=== PATIENT | female | born 1945 | race Caucasian/White ===

== ENCOUNTER → 2016-06-01 | Outpatient (CLI) | payer MEDICARE, BC ==
[~2016-06-01] MED LIST: ASCO500C7 PO; ASPI81TA3 PO; CHOL10009 PO; COU75 PO; FOLI1POW MC; LACT10SO5 PO; LEVO125T PO; OXYC5CAP17 PO; VENL150C PO; VITA400C15 PO; [UNRECOGNIZED DRUG - CODE] IJ
--- NOTE | 2016-06-01 15:46 | RADRPT ---
PROCEDURE: XR Left Hip and pelvis. CLINICAL INDICATION: Left hip pain. Pelvic pain. Postop. TECHNIQUE: Two views. Frontal pelvis and lateral left hip. COMPARISON: 11/11/2015. FINDINGS: There is no fracture or dislocation. The soft tissues are normal. There is a left hip total arthroplasty which appears satisfactory. There are mild degenerative changes of the right hip with osteophytes noted. There is no lytic or blastic lesion. The upper pelvis is not included on the image. IMPRESSION: 1. Satisfactory postoperative appearance of the left hip. 2. Mild degenerative changes of the right hip. RPTAT: QQ .Calixto Horne MD, MD Date Time Electronically viewed and signed by .Calixto Horne MD, MD on 06/01/2016 15:45 .R/
--- NOTE | 2016-06-01 17:30 | HKNOTE ---
DATE OF SERVICE: 06/01/2016 SUBJECTIVE: A 71-year-old female who presents today for 6-month postop visit status post left total hip arthroplasty via anterior route. In regards to the hip, patient has no pain complaints. The patient is very pleased status post total hip replacement. Continues with antibiotic prophylaxis status post joint arthroplasty. The patient does have pain complaints, but related to the bilateral knees. The patient has had right total knee arthroplasty on 2010 and a left knee total arthroplasty on 05/29/2012. In regards to functionality the bilateral knees, patient has no complaints and she has returned to full function. The patient states that she has had gradual onset of pain to the knee with crepitus style sensation. Pain does not limit the patient's activity, but expresses concern as pain continues to progress. Denies any falls. OBJECTIVE: VITAL SIGNS: Blood pressure is 142/72, temperature is 98.7 degrees, pulse is 102, respiratory rate is 12, height is 5 feet 6 inches. GENERAL: Gait is normal and nonantalgic. HIP: Well healed surgical scarring to the anterior left hip. The patient displays full range of motion on flexion and extension to the left hip. No pain with range of motion. 5/5 strength on resistance to flexion and extension of the left hip. LEFT KNEE: The patient displays full range of motion to the left knee on flexion and extension. Noted crepitus is secondary to scar tissue. Normal sensory examination to light touch. 5/5 strength on resistance. RIGHT KNEE: Full range of motion to the right knee with mild crepitus due to scarring on palpation while performing range of motion. 5/5 strength. Normal sensory examination to light touch. Knee remains stable with anterior drawer and posterior drawer bilaterally. IMAGING: X-ray to the left hip performed on 06/01/2016 showing prosthesis well attached and integrated to the bone. No signs of any lucency status post surgery. ASSESSMENT AND PLAN: 1. In regards to the left hip, patient continues to do well with no complaints. She is discharged from active care status post surgery. 2. Antibiotic prophylaxis instructions repeated today and discussed with patient in detail. She remains in possession of antibiotic card. 3. In regards to bilateral knees, patient was advised to continue close monitoring and if pain continues to progress, she was advised to return to office for repeat evaluation. Consideration may be arthroscopic surgery to try and shave some of the scarring. 4. Continue anti-inflammatories as needed for any discomfort. 5. Followup as needed. The patient was seen with Dr. Sim in office today. Dr. Sim is aware and agrees with plan. Dictated By: MIKEY ARIZMENDI for RAUL SIM MD, KP/PITER Conf#: [id number] DID#: [id number] [facility]
== END | disposition home or self-care (01) ==
LOC: HKI 13:44
DX: Z47.1 Aftercare following joint replacement surgery (principal); Z96.642 Presence of left artificial hip joint
CPT/HCPCS: 73502; G0463

== ENCOUNTER → 2016-09-01 | Outpatient (CLI) | payer MEDICARE, BC ==
--- NOTE | 2016-09-01 18:34 | RADRPT ---
PROCEDURE: Right knee radiographs. CLINICAL INDICATION: Right knee pain. Postop. TECHNIQUE: Three views. Weight bearing. Frontal, lateral, and patellar view. COMPARISON: 04/17/2012. FINDINGS: There is no fracture or dislocation. The soft tissues are normal. There is a total right knee arthroplasty which appears satisfactory. There is no lytic or blastic lesion. There is no joint effusion. IMPRESSION: 1. Satisfactory postoperative appearance of the right knee. RPTAT: QQ .Calixto Horne MD, Date Time Electronically viewed and signed by .Calixto Horne MD, on 09/01/2016 18:34 .R/
--- NOTE | 2016-09-07 05:32 | HKNOTE ---
DATE OF SERVICE: 09/01/2016 MAIN COMPLAINT: Postoperative visit following total knee replacement. HISTORY OF MAIN COMPLAINT: The patient is a 71-year-old female who underwent a right total knee rep lacement on 03/15/2011. She states that the knee was perfect and she was extremely delighted with t he results until she fell on the leg about 2 years ago. She landed on the patella. She has had juliette n in the knee ever since then. The pain occurs especially on squatting and on going up stairs. Juliette n is intermittent. She gets some pain every day. After the injury to the knee, the entire knee bec drea swollen and "black and blue for about 2 weeks." She was able to walk without a cane. She ____ stairs. The knee has "never been the same since" and seems to be getting worse. The patient is extremely active. There are 2 things that she likes to do that she is not able to do right now. Her has a motorcycle, and it is almost impossible for her to get on the pillion . Her also has a smaller aircraft. It is very difficult for her to get into the cockpit. The knee occasionally swells. There is no instability. Occasionally the knee feels as if it might lock. PHYSICAL EXAMINATION: GENERAL: The patient is a fit-looking 71-year-old female. She walks without a walking aid. VITAL SIGNS: Height 5 feet 6 inches, weight 190 pounds, blood pressure 140/90, temperature 98.5. RIGHT KNEE: Scar of previous knee replacement. Extension lacks 15 degrees, flexion is to 105 degre es. There is some laxity of the medial collateral ligament. Imaging of the right knee obtained today shows all components to be satisfactory. All components appear to be well attached to the bone and satisfactory. There is no sign of looseni ng. Alignment of the components appears to be good. DISCUSSION: The patient's prosthesis may be loose, or she may have stretched out her medial collate ral ligaments. MANAGEMENT: The patient is being referred for an MRI scan of the right knee and will be seen again thereafter for reevaluation. She was advised that she may have to just simply live with it at this point depending on what our findings are. Dictated By: RAUL MORRISON/PITER Conf#: [id number] [facility]#: [id number]
== END | disposition home or self-care (01) ==
LOC: HKI 14:26
DX: Z47.89 Encounter for other orthopedic aftercare (principal); Z96.651 Presence of right artificial knee joint
CPT/HCPCS: 73562; G0463

== ENCOUNTER → 2016-12-13 | Outpatient (CLI) | payer MEDICARE, BC ==
--- NOTE | 2016-12-13 16:00 | PN ---
Date/Time of Note Date/Time of Note DATE: 12/13/16 TIME: 15:53 Outpatient Progress Note Chief Complaint Left knee and also feels like the knee is coming out of the socket for the last 2 months the knee is unsteady the pain is about 7 out of 10 aggravated by standing weightbearing moving positions also noted diminished motion. Pain is relieved by Percocet. Patient states she has fibromyalgia and is under treatment for this. 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 loss, no Fatigue, normal appetite, no diaphoresis. Eyes: No pain, no discharge, no redness, no visual change, no foreign body. ENT: No pain, no bleeding, no congestion, no sore throat, no dysphagia, no discharge or rhinitis. Lymph: No adenopathy, no tender nodes, no lymphedema. Resp: No SOB, no cough, no sputum, no wheezing, no chest pain. CV: No chest pain, no palpitaions, no SCHRADER, no PND, no edema. GI: Normal appetite, no pain, no nausea, no vomiting, no diarrhea, no blood, no constipation. : No frequency, no urgency, no dysuria, no hematuria, no flank pain, no discharge, no bleeding. Musc: No bone/joint pain, no back pain, no neck pain, no knee pain, no restricted ROM. Skin: No rash, no skin lesions, no erythema, no laceration, no bruising, no pruritus. Neuro: No MARTINEZ, no dizziness, no syncope, no seizure, no focal-weakness. Endo: No polyuria, no polydypsia, no dry-skin, no temp-intolerance. Psych: No hallucinations, no depression, no anxiety, no suicidal ideation. Ext: No edema, no pain, no ulcer, no weakness. Physical Exam Exam age 71 height 5 feet 6 weight 190 pounds. Examination of the left knee reveals tenderness over The pes anserine this over the medial tibial condyle Good motion of the knee. X-rays of the knee revealed the presence of a well executed total knee arthroplasty without any evidence of any loosening. Allergies Coded Allergies: scopolamine (Verified Allergy, Severe, TACHYCARDIA, 05/09/12) hydrocodone (Verified Allergy, Intermediate, RASH, 05/09/12) meperidine (Verified Allergy, Intermediate, RASH, 05/09/12) oxycodone (Verified Allergy, Intermediate, RASH, 09/30/15) 09/30/15: PT TAKES PERCOCET AT HOME caffeine (Verified Allergy, Unknown, 09/30/15) hydromorphone HCl (Verified Allergy, Unknown, 09/30/15) tramadol (Verified Allergy, Unknown, HULLUCINATIONS, 09/30/15) Uncoded Allergies: TAPE (Adverse Reaction, Intermediate, 09/30/15) RASH AND BLISTERS WITH PLASTIC TAPE Assessment/Plan Diagnosis pes anserine tendinitis.She is to return again in 2 weeks time This area cannot be injected because she is on CoumadinTreatment she is to have phonophoresis Depo-Medrol at a physical therapy facility To return again in 2 weeks time Medications Home Meds Reported Medications Lactulose* (Lactulose*) 10 Gm/15 Ml Solution, 10 GM PO Q6 Y for CONSTIPATION, ML 09/30/15 Oxycodone Hcl* (IR) (Oxycodone Hcl*) 5 Mg Capsule, 5 MG PO Q4H Y for PAIN, CAP 09/30/15 Warfarin Sodium (Coumadin) 7.5 Mg Tablet, 4 MG PO DAILY, TAB 09/30/15 Cholecalciferol (Vitamin D3) 1,000 Unit Capsule, 1000 UNIT PO DAILY 03/15/11 Cyanocobalamin* (Vitamin B12*) 1,000 Mcg/Ml Soln, 1000 MCG IJ QM 03/15/11 Ascorbic Acid* (Vitamin C*) 500 Mg Capsule.sa, 500 MG PO DAILY 03/15/11 Vitamin E* (Vitamin E*) 400 Unit Capsule, 400 UNIT PO DAILY 03/15/11 Aspirin* (Aspirin* Chew) 81 Mg Tab.chew, 81 MG PO DAILY 03/15/11 Levothyroxine Sodium* (Synthroid*) 125 Mcg Tablet, 125 MCG PO DAILY 03/15/11 Folic Acid (Folic Acid) 1 Gm Powder, 1 GM MC DAILY TAKES 3 TABS=3 MG 03/15/11 Venlafaxine Hcl* (Effexor XR*) 150 Mg Cap.sr.24h, 75 MG PO DAILY 03/15/11 ENA GAYTAN Dec 13, 2016 16:00
--- NOTE | 2016-12-13 18:42 | RADRPT ---
PROCEDURE: knee x-ray CLINICAL INDICATION: Left knee pain. TECHNIQUE: AP , lateral and oblique weightbearing views of the left knee were obtained. COMPARISON: None FINDINGS: No evidence of fracture or dislocation. Intact total knee replacement with anatomic alignment. Trace suprapatellar joint effusion. No soft tissue or osseous abnormality. IMPRESSION: 1. No fracture or dislocation. Intact in total knee replacement with anatomic alignment. 2. Trace suprapatellar joint effusion. 3. No soft tissue abnormality. RPTAT:AAJJ oIna Castro Physician Date Time Electronically viewed and signed by Physician Jan on 12/13/2016 18:42 ASTRID/
== END | disposition home or self-care (01) ==
LOC: HKI 13:42
DX: M77.9 Enthesopathy, unspecified (principal); M76.892 Other specified enthesopathies of left lower limb, excluding foot
CPT/HCPCS: 73562; G0463

== ENCOUNTER → 2016-12-27 | Outpatient (CLI) | payer MEDICARE, BC ==
--- NOTE | 2016-12-28 04:07 | HKNOTE ---
DATE OF SERVICE: 12/27/2016 MAIN COMPLAINT: Pain in the left knee. HISTORY OF MAIN COMPLAINT: Patient is a 71-year-old female who underwent a left knee replacement in 2012, which was performed by me. She had absolutely no problems with the knee until about 3 months ago when she developed pain in the knee. There was no injury at the time. The pain came on fairly rapidly. She had not sustained any infection of any kind around about that time. The pain seems to be getting worse. The pain sometimes radiates from the knee to the ankle. She does not have any history of problems with her lower back. She never had an MRI scan of her back. She gets swelling of the left knee and the lower leg. She does not use a cane. She likes to use the cart in the grocery store. She gets pain with every step that she takes. She is allergic to most medications. She takes an occasional Percocet for pain. PHYSICAL EXAMINATION: GENERAL: The patient is a delightful 71-year-old female, who comes here with her . VITAL SIGNS: Height 5 feet 6 inches. Weight 190 pounds. Blood pressure 135/85. Temperature 97.9. GAIT: The patient has an antalgic gait. She uses a cane. EXAMINATION OF THE LEFT KNEE: No external increase in temperature or redness. Extension is full. Flexion is full. Some tenderness over the medial side of the knee. IMAGING: X-rays of the knee obtained today show that the components are seemingly all well attached to the bone and well aligned. DIAGNOSIS: Painful left total knee replacement of recent onset. MANAGEMENT: 1. Under sterile conditions, the knee was aspirated of 10 mL of blood-stained fluid, which is being sent for cell count, culture and sensitivity. 2. She is being referred for a scan of the knee. 3. Being sent for CBC, sed rate, C-reactive protein. 4. Will be seen again in a week's time for re-evaluation. Dictated By: Alexis Narayanan MD /everardo/junior /Document#: [id number]
== END | disposition home or self-care (01) ==
LOC: HKI 13:33
DX: M25.562 Pain in left knee (principal); Z96.652 Presence of left artificial knee joint
CPT/HCPCS: 20610; G0463

== ENCOUNTER → 2017-01-05 | Outpatient (CLI) | payer MEDICARE, BC ==
--- NOTE | 2017-01-24 10:04 | HKNOTE ---
DATE OF SERVICE: 01/05/2017 Patient comes in with the CT scan of her [____] knee, which was obtained on 12/29/2016. The CT scan obtained on 12/29/[address] Keith Gee as showing "no gross prosthetic fracture or gross prosthetic loosening." The fluid obtained from her knee had no growth, and the cell count was normal, except for an elevated monocyte count, the significance of which is not known. The sedimentation rate was 2, and the C-reactive protein 4.1. Patient had no pain whatsoever in her knee for about 6 hours after I injected lidocaine into the knee at the last visit. After that, the pain returned to the same intensity. The pain radiates from her [____] knee to her ankle, and also to the big toe. Patient gets start-up pain, which can be "quite severe, which settles down but "can be quite severe." The pain settles down after about 10 steps but never goes away completely. She takes an occasional Percocet. SHE IS ALLERGIC TO EVERYTHING. When she has to take a Percocet she has to take along with it various medications to calm her stomach down, including Benadryl. The knee occasionally feels unstable, and she has stumbled, but not fallen. She does not have any history of problems with her lower back. She has no numbness or tingling in her legs. Note that she fell a year ago, but the pain problem only started about 4 months ago. She has not had any recent infections. PHYSICAL EXAMINATION: Temperature is 98. She walks without a walking aid. Examination of the [____] knee, all within normal limits, except for marked tenderness over the [____] pes bursa. The tenderness is more extensive than normal, extending down for about 2 inches along the upper border of the tibia. Under sterile conditions, she was given injection of 2 mL of Kenalog and 5 mL 2 percent lidocaine, spread out over this area into the bursa. Patient is being sent for: 1. A technetium bone scan. 2. A white cell scan. She will be seen again this coming Monday for an evaluation. Dictated By: Alexis Narayanan MD /everardo/td /Document#: [id number]
== END | disposition home or self-care (01) ==
LOC: HKI 09:06
DX: M25.562 Pain in left knee (principal)
CPT/HCPCS: 20610

== ENCOUNTER → 2017-01-10 | Outpatient (CLI) | payer MEDICARE, BC ==
--- NOTE | 2017-01-10 11:44 | RADRPT ---
PROCEDURE: XR Left Tibia and Fibula. CLINICAL INDICATION: Left lower leg pain. TECHNIQUE: Two views. Frontal and lateral. COMPARISON: No prior studies are available for comparison. FINDINGS: There is no fracture or dislocation. The soft tissues are normal. There is a left knee total arthroplasty which appears satisfactory. There is no lytic or blastic lesion. There is no radiopaque foreign body. IMPRESSION: 1. Left knee total arthroplasty. 2. Otherwise unremarkable images of the left tibia and fibula. RPTAT: QQ .Calixto oHrne MD, MD Date Time Electronically viewed and signed by .Calixto Horne MD, on 01/10/2017 11:44 .R/
--- NOTE | 2017-01-10 18:18 | HKNOTE ---
DATE OF SERVICE: 01/10/2017 Patient comes in for re-evaluation. She has not had bone scans and white cell scan. This will be performed tomorrow. She continues with the same symptoms. The injection I gave her last week into the pes bursa gave her no relief. Patient does not have a job, but she has a 4000 square foot home that she pretty much keeps spick and span all by herself. PHYSICAL EXAMINATION: VITAL SIGNS: Temperature 98.0, blood pressure 145/75. EXTREMITIES: Left knee: No increased temperature around the knee, but there is increased temperature around the medial side of the tibia. Tender over the entire anteromedial surface of the tibia. IMAGING: Plain x-rays of the tibia obtained today are entirely normal and once again, the knee implants as could be seen on these pictures show that the components are well attached to the bone, without any sign of loosening. MANAGEMENT: Patient will return after she has had the scans performed. Dictated By: Alexis Narayanan MD /everardo/td /Document#: [id number]
== END | disposition home or self-care (01) ==
LOC: HKI 09:28
DX: Z09 Encounter for follow-up examination after completed treatment for conditions other than malignant neoplasm (principal); M25.562 Pain in left knee
CPT/HCPCS: 73590; G0463

== ENCOUNTER → 2017-01-11 | Outpatient (CLI) | payer MEDICARE, BC ==
--- NOTE | 2017-01-11 16:28 | RADRPT ---
PROCEDURE: Whole body and three-phase bone scan study CLINICAL INDICATION: 71 -year-old patient with bilateral knee and left hip replacement, complainin g of left knee pain. TECHNIQUE: Following the intravenous injection of 22.6 mCi of Tc-99m MDP, a three-phase bone scan study of the knees bilaterally was obtained. Whole body anterior and posterior planar images were ob tained along with spot views of both hands. COMPARISON: No prior bone scan studies. X-ray of the left tibia and fibula dated January 10, 2017, x-ray of the left knee dated December 13, 2016. X-ray of the right knee dated September 01, 2016. FINDINGS: Blood flow phase of the study demonstrates symmetrical distribution of activity in the knees to bila terally. Blood pooling images reveal symmetrical distribution of uptake in both knees. Whole body anterior and posterior planar images demonstrate slightly heterogeneous distribution of a ctivity throughout the spine, which is likely related to degenerative process. There is evidence of a left hip and bilateral knee replacements with very mild increase in activity surrounding both knee prosthesis. No other areas of increased tracer uptake are seen in the remainder of the visualized skeletal syste m. There is no evidence of mass abnormality of the kidneys or obstructive uropathy. IMPRESSION: 1. Evidence of the bilateral knee and left hip replacement with likely postsurgical changes. 2. Likely mild degenerative changes of the spine. 3. No other definite skeletal abnormalities. RPTAT: HH .Dimple Karimi MD, MD Date Time Electronically viewed and signed by .Dimple Karimi MD, MD on 01/11/2017 16:27 .L/
== END | disposition home or self-care (01) ==
LOC: NUC 09:20
DX: M25.562 Pain in left knee (principal)
CPT/HCPCS: 78306; 78315; A9503

== ENCOUNTER 2017-01-12 08:00 | Outpatient (CLI) | payer MEDICARE, BC ==
--- NOTE | 2017-01-12 16:46 | RADRPT ---
PROCEDURE: Tc 99m Ceretec white blood cell scan CLINICAL INDICATION: 71 -year-old patient with left knee pain, status post bilateral knee replacem ents. TECHNIQUE: Following the intravenous injection of 24.7 mCi of Tc 99 m Ceretec labeled white blood cells, whole body anterior and posterior planar images were obtained 2 hours post injection. COMPARISON: Bone scan study dated January 11, 2017. FINDINGS: No abnormal areas of increased tracer activity are seen in both knees. No definite abnormal areas of increased activity are seen in the study, including the visualized por tions of the head and neck, chest, abdomen, pelvis and visualized portions of the upper and lower ex tremities bilaterally. Physiologic uptake is noted in the heart, liver, spleen and bladder. IMPRESSION: No definite abnormal focal areas of increased activity in the left knee and elsewhere in the remaind er of the body. RPTAT: HH .Dimple Karimi MD, Date Time Electronically viewed and signed by .Dimple Karimi MD, on 01/12/2017 16:46 .L/
== END 2017-01-12 23:59 | disposition home or self-care (01) ==
LOC: NUC 08:00
DX: T84.84XA Pain due to internal orthopedic prosthetic devices, implants and grafts, initial encounter (principal); Y83.8 Other surgical procedures as the cause of abnormal reaction of the patient, or of later complication, without mention of misadventure at the time of the procedure
CPT/HCPCS: 78806; A9521

== ENCOUNTER → 2017-01-18 | Outpatient (CLI) | payer MEDICARE, BC ==
--- NOTE | 2017-01-19 10:21 | HKNOTE ---
DATE OF SERVICE: 01/18/2017 Patient comes in with her whole body 3 phase bone scan study for review. The procedure was performe d on 01/11/2017. The procedure is reported as showing "likely mild degenerative changes in the spin e. No other definite skeletal abnormalities. Symmetrical distribution in the knees bilaterally". DISCUSSION: The patient continues with exactly the same symptoms. Pain is not in the knee, but is below the knee. Marked tenderness along the surface of the tibia anterolaterally. So far I am completely stumped by the course of Marirose's pain. MANAGEMENT: She is being referred for an MRI scan of the lumbar spine. Depending upon the findings , I may or may not give her a trial of lumbar epidural cortisone injection to see what effect it has in symptoms. After that the only option would be to do an exploratory operation to see if any of the components _ ____. Dictated By: RAUL MORRISON/PITER Conf#: [id number] DID#: [id number]
== END | disposition home or self-care (01) ==
LOC: HKI 09:31
DX: M25.562 Pain in left knee (principal); M25.561 Pain in right knee

== ENCOUNTER → 2017-01-24 | Outpatient (CLI) | payer MEDICARE, BC ==
--- NOTE | 2017-01-25 06:57 | HKNOTE ---
DATE OF SERVICE: 01/24/2017 Patient comes in with MRI scan of her lumbar spine for review. The MRI obtained on 01/19/2017 is re ported by Dr. Gee as showing multiple small changes which may or may not be of significance. Certainly nothing here to suggest that she needs surgery to the lumbar spine. In fact, difficult to even correlate any of these changes with the symptoms she has in her leg. She was advised that the next step for her is possibly an exploration of the knee replacement to see if any of the components are loose. It is still very disconcerting that most of her symptoms are b elow the knee starting about the tibial tubercle and extending to the ankle with tenderness of the s oft tissues around this area. I have recommended that she undergo a lumbar epidural cortisone injection by way of diagnostic test to see how much of her pain might be alleviated, certainly frequently seeing the most interesting re sults even without significant pathology in the lumbar spine. I called Dr. Robert Silvestre to ask him if he could perform the epidural injection. The patient has a pro thrombin 3 deficiency. She is on Coumadin. I called Dr. Ruiz and he indicated that she could be o ff the Coumadin for 3 days, but she should be bridged by Lovenox. He will take care of arranging th e blood thinning medications. Patient given a copy of her lumbar spine MRI and I discussed with Dr. Silvestre's office to schedule a date for her. She will be seen again by me a week after that. Dictated By: RAUL MORRISON/PITER Conf#: [id number] DID#: [id number]
== END | disposition home or self-care (01) ==
LOC: HKI 09:24
DX: M25.562 Pain in left knee (principal); Z96.653 Presence of artificial knee joint, bilateral; Z96.642 Presence of left artificial hip joint; D68.2 Hereditary deficiency of other clotting factors; Z79.01 Long term (current) use of anticoagulants

== ENCOUNTER → 2017-02-24 | Outpatient (CLI) | payer MEDICARE, BC ==
--- NOTE | 2017-02-24 19:11 | HKNOTE ---
DATE OF SERVICE: 02/24/2017 CHIEF COMPLAINT: Left knee pain. HISTORY OF PRESENT ILLNESS: Rigo is a 72-year-old female who is here for evaluation of left kne e pain. 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 The left knee replacement was done over 2 years ago. She was doing well until 4 or 5 months ago when the le ft knee started hurting. She does have a history of falling on the left side with bruising and inju ry to the left knee; however, she reports that she recovered from that and was doing well. The knee has been painful over the past few months to a point where it is interfering with routine activitie s and with sleep. The knee pain is associated with swelling and a feeling of giving out of the left knee. There is no history of fever or chills. There is some radiation of pain down the diaz. The patient had an extensive workup to rule out infection. Knee aspirate was negative for infection. The C-reactive protein and ESR were normal. Bone scan was also completed. The patient is here for further management. PHYSICAL EXAMINATION: GENERAL: Shows a pleasant female. She is anxious, awake, alert and oriented. MUSCULOSKELETAL: She walks with a limp on her left side. The left knee appears to be swollen. The incision is well healed. There is severe tenderness along the medial aspect of the left knee. Mil d valgus orientation is noted. Range of motion is 5 to 105 degrees. There is no instability and no neurovascular deficit. PAST HISTORY, MEDICATIONS AND REVIEW OF SYSTEMS: Also reviewed in detail. The significant finding is the patient takes Coumadin due to previous history of a PE. She is also taking Percocet and pain medication at this time. IMAGING: X-rays of the left knee were reviewed and show a total knee replacement. The components a ppear to be well fixed. The bone scan was reviewed and shows no evidence of component loosening. R eview of x-rays also show that alignment of the tibial component on the left knee could be a source of pain, and this may be a mechanical problem with the left knee. ASSESSMENT AND PLAN: A 72-year-old female with a progressively painful left knee replacement. The knee replacement was completed 3 to 4 years ago. There is no evidence of infection or loosening of the components. Pain appears to be mechanical in nature. The pain has been progressive despite con servative treatment. The patient wants to proceed with definitive treatment of this left knee. She understands that definitive treatment involves revision of the left knee with stemmed components. Risks and benefits were discussed. Implant materials and surgical techniques were discussed. The p atient would like to proceed with surgical treatment in the near future. She will be scheduled for surgery as soon as possible. Dictated By: DEUCE GARCIA/PITER Conf#: [id number] DID#: [id number]
== END | disposition home or self-care (01) ==
LOC: HKI 14:42
PROVIDERS: ATTEND Orthopaedic Surgery
DX: M25.562 Pain in left knee (principal); Z96.653 Presence of artificial knee joint, bilateral; Z96.642 Presence of left artificial hip joint

== ENCOUNTER → 2017-05-12 | Outpatient (CLI) | END | disposition home or self-care (01) ==

== ENCOUNTER → 2017-06-09 | Outpatient (CLI) | END | disposition home or self-care (01) ==

== ENCOUNTER → 2017-07-17 | Outpatient (CLI) | END | disposition home or self-care (01) ==

== ENCOUNTER → 2017-12-18 | Outpatient (CLI) | END | disposition home or self-care (01) ==

== ENCOUNTER → 2018-04-30 | Outpatient (CLI) | payer MEDICARE, BC ==
[~2018-04-30] MED LIST changes: +ASPI-903 PO; -ASPI81TA3 PO
--- NOTE | 2018-04-30 09:25 | PN ---
Date/Time of Note Date/Time of Note DATE: 04/30/18 TIME: 09:20 Assessment/Plan VTE Prophylaxis Pharmacological prophylaxis: NA/contraindicated, other Pharm contraindication: low risk/ambulating Assessment/Plan Assessment/Plan Ms. Liu is a 73-year-old female status post left knee revision about 1 year ago. 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 Patient is advised to continue exercises and medications as needed. Genicular nerve blocks may be considered. The patient inquired about acupuncture and CBD. She may try these on her own. She will follow-up annually with new x-rays Subjective 24 Hr Interval Summary Free Text/Dictation 73-year-old female who is here for follow-up of left knee revision done about 1 year ago. She continues to have significant pain and is using a walker. She states that she has swelling and stiffness of her left knee and the left knee has given out a few times. Physical therapy has been quite painful and the patient is doing exercises at home. She has been under the care of pain management for CRPS. The patient also has fibromyalgia. She reports that between the CRPS and fibromyalgia, the left knee remains very sensitive to manipulation and touch. There is no history of fever or chills. She has occasional pain in the right knee. In general, the patient has recovered to a point where she is doing most of her routine activities with some pain and needs a walker for support Exam/Review of Systems Vital Signs Vitals Patient is afebrile vital signs show temperature 97.9, pulse rate 85, respiration 12 and blood pressure 139/69 Exam Examination shows a pleasant female. She is walking with a slight limp on the left side. She is using a walker for support. The left knee has swelling. There is increased sensitivity of the skin around the left knee. The incision is well-healed. There is no evidence of infection or DVT. Range of motion is 5-95 degrees. There is no instability and no neurovascular deficit. Mild atrophy of the left quadriceps is noted. New x-rays of the left knee were done today and showed revision components in excellent position with no evidence of loosening DEUCE JEFFERSON Apr 30, 2018 09:25
--- NOTE | 2018-04-30 19:37 | RADRPT ---
PROCEDURE: Left knee x-ray CLINICAL INDICATION: Status post total knee replacement. TECHNIQUE: Two views of the left knee were obtained. COMPARISON: 07/18/2079 FINDINGS: The patient is status post total knee replacement with a long femoral and tibial stems constraining t otal arthroplasty. The prosthesis is intact with anatomic alignment. No soft tissue abnormality. Sma ll joint effusion. There is normal mineralization. No acute fracture or dislocation is seen. IMPRESSION: Intact left total hip prosthesis. Small joint effusion. RPTAT:AAJJ Physician Jan Date Time Electronically viewed and signed by Physician Jan on 04/30/2018 19:37 ASTRID/
== END | disposition home or self-care (01) ==
LOC: HKI 08:31
PROVIDERS: ATTEND Orthopaedic Surgery
DX: M25.562 Pain in left knee (principal); R22.42 Localized swelling, mass and lump, left lower limb
CPT/HCPCS: 73560; G0463